=== PATIENT | female | born 1990 | race Caucasian/White ===

== ENCOUNTER 2017-05-08 16:16 | Emergency (ER) | payer OTHER, MEDICAID ==
[2017-05-08] MEDS: ONDANSETRON (ODT) 4 MG TAB ODT (17:58)
== END 2017-05-08 19:50 | disposition home or self-care (01) ==
LOC: FTE 16:16
DX: B34.9 Viral infection, unspecified (principal)
CPT/HCPCS: 71045; 87400; 93005; 99285-25

== ENCOUNTER 2017-06-11 13:11 | Emergency (ER) | payer OTHER ==
[2017-06-11] MEDS: predniSONE 20 MG TAB PO (15:39)
[2017-06-11] MEDS: IBUPROFEN 600 MG TAB PO (15:39)
[2017-06-11] MEDS: ALBUTEROL 0.083% (NEB) 2.5 MG/3 ML AMP HHN (15:45)
== END 2017-06-11 16:32 | disposition home or self-care (01) ==
LOC: FTE 13:11
DX: J06.9 Acute upper respiratory infection, unspecified (principal)
CPT/HCPCS: 71045; 94664; 99284-25